=== PATIENT | male | born 1955 | race African-American/Black ===

== ENCOUNTER 2022-06-11 17:39 | Inpatient (IN) | payer OTHER ==
[2022-06-11 20:17] VITALS: BMI 23.4
[2022-06-11] MEDS ORDERED: Acetaminophen 325 MG TAB PO PRN (20:39)
[2022-06-11] MEDS ORDERED: Acetaminophen 650 MG Suppository PR PRN (20:39)
[2022-06-11] MEDS ORDERED: hydrALAZINE 20 MG/ML VIAL SLOW IVP PRN (20:39)
[2022-06-11] MEDS ORDERED: Ondansetron PF 4 MG/2 ML Vial IVP PRN (20:39)
[2022-06-11] MEDS ORDERED: Ondansetron ODT 4 MG TAB PO PRN (20:39)
[2022-06-11] MEDS ORDERED: Baclofen 10 MG TAB PO SCH (22:00)
[2022-06-11] MEDS ORDERED: Gabapentin 300 MG CAP PO SCH (22:00)
[2022-06-11] MEDS: Ziprasidone 60 MG CAP PO SCH (22:46)
[2022-06-12 00:29] LABS: #Eosinphils 0.1 thou/uL (0.0-0.7); #Lymphocytes 1.2 thou/uL (1.20-3.40); #Monocytes 0.4 thou/uL (0.11-0.59); #Neutrophils 1.7 thou/uL (1.40-6.50); %Basophils 0.3 % (0.0-1.0); %Eosinophils 2.2 % (0.0-10.0); %Lymphocytes 35.9 % (21.0-51.0); %Monocytes 12.7 % (0.0-10.0); %Neutrophils 48.9 % (42.0-75.0); Hemoglobin 14.2 g/dL (14.0-18.0); Mean Corpuscular HGB CONC 31.9 g/dL (32.0-36.0); Mean Corpuscular Hemoglobin 28.6 pg (27.0-31.0); Mean Corpuscular Volume 89.9 fl (78.0-98.0); Mean Platelet Volume 7.9 fL (7.4-10.4); Platelet Count 127 10x3/uL (130-400); RBC Distribution Width 11.5 % (11.5-14.5); Red Blood Cell (RBC) Count 4.95 mill/uL (4.70-6.10); White Blood Cell (WBC) Count 3.5 10x3/uL (4.8-10.8)
[2022-06-12 00:48] LABS: Hemoglobin A1c 6.3 % (4.0-6.0)
[2022-06-12 05:02] LABS: #Eosinphils 0.1 thou/uL (0.0-0.7); #Lymphocytes 1.1 thou/uL (1.20-3.40); #Monocytes 0.4 thou/uL (0.11-0.59); #Neutrophils 1.4 thou/uL (1.40-6.50); %Basophils 0.4 % (0.0-1.0); %Eosinophils 1.9 % (0.0-10.0); %Lymphocytes 37.3 % (21.0-51.0); %Neutrophils 46.4 % (42.0-75.0); Hemoglobin 13.8 g/dL (14.0-18.0); Mean Corpuscular Hemoglobin 28.5 pg (27.0-31.0); Mean Platelet Volume 7.7 fL (7.4-10.4); Platelet Count 124 10x3/uL (130-400); RBC Distribution Width 11.4 % (11.5-14.5); Red Blood Cell (RBC) Count 4.86 mill/uL (4.70-6.10); White Blood Cell (WBC) Count 2.9 10x3/uL (4.8-10.8)
[2022-06-12 05:23] LABS: Anion Gap 12 mmol/L (10-20); BUN (Urea Nitrogen) 12 mg/dL (8.4-25.7); Calc. Creatinine Clearance 104 mL/min (70-130); Calcium 9.1 mg/dL (7.8-10.44); Carbon Dioxide 24 mmol/L (23-31); Cardiac Risk 4.8 (Less than 4.5); Chloride 102 mmol/L (98-107); Cholesterol 200 mg/dl (< 200 Desired); Estimated GFR 98; Glucose 97 mg/dL (80-115); HDL Cholesterol 42 mg/dL (>60 Neg Risk); LDL Cholesterol, Calculated 139 mg/dL; Potassium 4.4 mmol/L (3.5-5.1); Sodium 134 mmol/L (136-145); Triglycerides 96 mg/dL (Less than 150)
[2022-06-12] MEDS: Ziprasidone 20 MG CAP PO SCH (08:44)
[2022-06-12] MEDS: Aspirin 81 mg Enteric Coated Tablet PO SCH (08:44)
[2022-06-12] MEDS: Gabapentin 300 MG CAP PO SCH ×3 (08:45→20:48)
[2022-06-12] MEDS: carBAMazepine 200 MG TAB PO SCH ×2 (08:45→20:48)
[2022-06-12] MEDS: Baclofen 10 MG TAB PO SCH ×3 (08:45→20:47)
[2022-06-12] MEDS ORDERED: Aspirin 81 mg Enteric Coated Tablet PO SCH (09:00)
[2022-06-12] MEDS: Ziprasidone 60 MG CAP PO SCH (20:50)
[2022-06-12] MEDS ORDERED: Ziprasidone 60 MG CAP PO SCH (21:00)
[2022-06-13] MEDS ORDERED: Cyanocobalamin (Vitamin B-12) 1,000 MCG TAB PO SCH (09:00)
[2022-06-13] MEDS ORDERED: HYDROcodone/Acetaminophen 5/325 mg Tablet PO PRN (09:11)
[2022-06-13] MEDS: Ziprasidone 20 MG CAP PO SCH (09:34)
[2022-06-13] MEDS: carBAMazepine 200 MG TAB PO SCH (09:36)
[2022-06-13] MEDS: Baclofen 10 MG TAB PO SCH ×2 (09:36→15:53)
[2022-06-13] MEDS: Aspirin 81 mg Enteric Coated Tablet PO SCH (09:36)
[2022-06-13] MEDS: Gabapentin 300 MG CAP PO SCH ×2 (09:37→15:53)
[2022-06-13] MEDS ORDERED: Lidocaine 5% Patch TD SCH (10:00)
[2022-06-13 15:55] VITALS: BP 131/73; TEMP 97.4
[2022-06-13] MEDS ORDERED: LIDOCAINE Patch Removal TOP SCH (22:00)
== END 2022-06-13 19:09 | disposition short-term general hospital (02) | DRG 552 ==
LOC: 2SW 19:47 → OBSVTOIN 19:47 → EEVIPCON 19:47
PROVIDERS: ADMIT Internal Medicine; ATTEND Family Medicine
DX: M48.02 Spinal stenosis, cervical region (principal); F20.9 Schizophrenia, unspecified; E78.5 Hyperlipidemia, unspecified; K74.60 Unspecified cirrhosis of liver; G89.29 Other chronic pain; Z20.822 Contact with and (suspected) exposure to COVID-19; F17.210 Nicotine dependence, cigarettes, uncomplicated; M48.061 Spinal stenosis, lumbar region without neurogenic claudication; D69.6 Thrombocytopenia, unspecified; G62.9 Polyneuropathy, unspecified; Z79.899 Other long term (current) drug therapy
CPT/HCPCS: 36415; 70551; 72125; 72131; 80048; 80061; 82607; 83036; 85025; 93306; 93880